=== PATIENT | female | born 1955 | race Hispanic/Latino ===

== ENCOUNTER 2018-08-31 21:44 | Emergency (ER) | payer BC ==
[2018-08-31 22:41] LABS: Absolute Lymphocytes (CBC) 2.6 K/uL (0.7-4.9); Basophils % 0.8 % (0-1.3); Eosinophils % 2.8 % (0-4.4); Hematocrit 37.6 % (36.0-45.0); Lymphocytes % 35.3 % (15.3-44.8); MPV 8.3 fL (7.6-11.3); Monocytes % 8.6 % (3.3-12.3); RBC Red Blood Cell Count 4.03 M/uL (3.86-4.86)
[2018-08-31] MEDS ORDERED: NA CHLORIDE 0.9% 1,000 ML ONE (22:42)
[2018-08-31] MEDS ORDERED: NA CHLORIDE 0.9% 500 ML ONE (22:42)
[2018-08-31 22:44] LABS: Protime INR 1.02
--- NOTE | 2018-08-31 23:06 | RAD REPORT ---
EXAM DESCRIPTION: US - CP - 08/31/2018 10:57 pm CLINICAL HISTORY: DIZZINESS Headache, drowsiness COMPARISON: Head C Spine Mpr Wo Con dated 01/23/2017 TECHNIQUE: Real-time sonographic evaluation of both carotid systems was performed. Doppler interroga tion was performed with waveform tracing bilaterally. FINDINGS: Normal high resistance waveforms are noted in both external carotid arteries. The common c arotid arteries and internal carotid arteries show normal low resistance waveforms. No significant plaque formation is seen. Peak systolic and end diastolic velocity values and the ICA/ CCA ratios are in the non-hemodynamically significant range. Antegrade flow seen in both vertebral arteries. IMPRESSION: No significant atherosclerotic changes noted. No evidence of a hemodynamically significant stenosis.
--- NOTE | 2018-08-31 23:07 | RAD REPORT ---
EXAM DESCRIPTION: RAD - Chest Single View - 08/31/2018 10:38 pm CLINICAL HISTORY: COUGH Chest pain. COMPARISON: CHEST SINGLE VIEW dated 03/24/2010; CHEST PA AND LAT 2 VIEW dated 06/01/2005 FINDINGS: Portable technique limits examination quality. The lungs are mildly fibrotic but grossly clear. The heart is normal in size. No displaced fractures. IMPRESSION: No acute intrathoracic process suspected.
[2018-08-31 23:10] LABS: ALT/SGPT 17 U/L (12-78); AST/SGOT 15 U/L (15-37); Albumin 3.5 g/dL (3.4-5.0); Alkaline Phosphatase 57 U/L (45-117); BUN Blood Urea Nitrogen 14 mg/dL (7-18); Bicarbonate 26 mmol/L (21-32); Bilirubin Direct < 0.1 mg/dL (0-0.2); Bilirubin Total 0.3 mg/dL (0.2-1.0); Glucose Level 105 mg/dL (74-106); Magnesium 2.1 mg/dL (1.8-2.4); NT PRO-BNP 29 pg/mL (<125); Potassium 3.6 mmol/L (3.5-5.1); Protein, Total 7.1 g/dL (6.4-8.2); Sodium Level 147 mmol/L (136-145); Troponin (Emerg Dept Use Only) < 0.02 ng/mL (0.0-0.045)
--- NOTE | 2018-08-31 23:17 | ER ---
Nurse's Notes [facility] Name: Sowmya Butterfield Age: 63 yrs Sex: Female : 1955 Arrival Date: 08/31/2018 Time: 21:48 Bed 6 Private MD: Diagnosis: [place] of blind spot area, bilateral Presentation: 08/31 21:57 Presenting complaint: Patient states: About an hour and half ago I started seeing spots ed1 and I have a bad headache. Transition of care: patient was not received from another setting of care. Onset of symptoms was August 31, 2018 at 20:30. Risk Assessment: Do you want to hurt yourself or someone else? Patient reports no desire to harm self or others. Initial Sepsis Screen: Does the patient meet any 2 criteria? No. Patient's initial sepsis screen is negative. Does the patient have a suspected source of infection? No. Patient's initial sepsis screen is negative. Care prior to arrival: None. 21:57 Method Of Arrival: Ambulatory ed1 21:57 Acuity: ORTIZ 3 ed1 Triage Assessment: 21:59 General: Appears uncomfortable, Behavior is calm, cooperative. Pain: Complains of pain ed1 in forehead Pain currently is 6 out of 10 on a pain scale. Neuro: Level of Consciousness is awake, alert, obeys commands, Oriented to person, place, time, situation, Shuttle Van Driver are equal bilaterally Moves all extremities. Full function Gait is steady, Speech is normal, Facial symmetry appears normal, Pupils are PERRLA, Intact Reports headache in entire frontal area. 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 - Social history:: Smoking status: Patient/guardian denies using tobacco. - Ebola Screening: : Patient negative for fever greater than or equal to 101.5 degrees Fahrenheit, and additional compatible Ebola Virus Disease symptoms Patient denies exposure to infectious person Patient denies travel to an Ebola-affected area in the 21 days before illness onset No symptoms or risks identified at this time. - Family history:: not pertinent. Screenin:14 Abuse screen: Denies threats or abuse. Nutritional screening: No deficits noted. jd3 Tuberculosis screening: No symptoms or risk factors identified. Fall Risk Ambulatory Aid- None/Bed Rest/Nurse Assist (0 pts). Gait- Normal/Bed Rest/Wheelchair (0 pts) Mental Status- Oriented to own ability (0 pts). Total Mann Fall Scale indicates No Risk (0-24 pts). Assessment: 22:11 General: Appears in no apparent distress. uncomfortable, Behavior is calm, cooperative, jd3 appropriate for age, anxious. Pain: Complains of pain in forehead Quality of pain is described as aching, pressure. Neuro: Level of Consciousness is awake, alert, obeys commands, Oriented to person, place, time, situation, Moves all extremities. Full function Gait is steady, Speech is normal, Facial symmetry appears normal, Pupils are PERRLA, Reports seeing spots of light. Denies weakness blurred vision dizziness, numbness diplopia. Cardiovascular: Denies chest pain, Capillary refill < 3 seconds Patient's skin is warm and dry. Respiratory: Airway is patent Respiratory effort is even, unlabored, Respiratory pattern is regular, symmetrical, Denies shortness of breath. GI: Abdomen is round non-distended, Patient currently denies constipation, diarrhea, nausea, vomiting. : No signs and/or symptoms were reported regarding the genitourinary system. EENT: Sclera/Cornea are clear in right eye and left eye. Derm: Skin is intact, Skin is dry, Skin is normal, Skin temperature is warm. Musculoskeletal: Circulation, motion, and sensation intact. Range of motion: intact in all extremities. 23:28 Reassessment: Patient appears in no apparent distress at this time. No changes from jd3 previously documented assessment. Patient and/or family updated on plan of care and expected duration. Pain level reassessed. Patient is alert, oriented x 3, equal unlabored respirations, skin warm/dry/pink. 23:45 Reassessment: Patient appears in no apparent distress at this time. Patient and/or jd3 family updated on plan of care and expected duration. Pain level reassessed. Patient is alert, oriented x 3, equal unlabored respirations, skin warm/dry/pink. reported understanding of discharge instructions. Vital Signs: 21:59 BP 150 / 79; Pulse 81; Resp 16; Temp 97.5(TE); Pulse Ox 97% on R/A; Weight 77.11 kg ed1 (R); Height 4 ft. 11 in. (149.86 cm) (R); Pain 6/10; 23:05 BP 113 / 73; Pulse 78; Resp 19 S; Pulse Ox 95% on R/A; jd3 23:26 BP 128 / 73 Supine; Pulse 83; jd3 23:27 BP 123 / 71 Sitting; Pulse 85; jd3 23:28 BP 136 / 75 Standing; Pulse 86; Resp 18 S; Pulse Ox 100% on R/A; jd3 21:59 Body Mass Index 34.34 (77.11 kg, 149.86 cm) ed1 ED Course: 21:48 Patient arrived in ED. ag3 21:58 Triage completed. ed1 21:59 Arm band placed on. ed1 22:03 Sidney Schwartz MD is Attending Physician. jannie 22:11 Milton Flores RN is Primary Nurse. jd3 22:15 Patient has correct armband on for positive identification. Placed in gown. Bed in low jd3 position. Call light in reach. Side rails up X 1. Adult w/ patient. 22:22 Inserted saline lock: 20 gauge in left antecubital area, using aseptic technique. Blood jd3 collected. 22:34 XRAY Chest (1 view) In Process Unspecified. EDMS 22:34 CT Head Brain wo Cont In Process Unspecified. EDMS 22:51 US Carotid Artery Bilateral In Process Unspecified. EDMS 23:14 Gianni Walton MD is Referral Physician. jannie 23:44 No provider procedures requiring assistance completed. IV discontinued, intact, jd3 bleeding controlled, No redness/swelling at site. Pressure dressing applied. Administered Medications: 22:56 Drug: NS 0.9% 500 ml Route: IV; Rate: bolus; Site: left antecubital; jd3 23:28 Follow up: Response: No adverse reaction; IV Status: Completed infusion; IV Intake: jd3 500ml 22:56 Drug: NS 0.9% 1000 ml Route: IV; Rate: 125 ml/hr; Site: left antecubital; jd3 23:44 Follow up: Response: No adverse reaction; IV Status: Order to discontinue infusion jd3 23:32 Drug: Aspirin 81 mg Route: PO; jd3 23:44 Follow up: Response: Medication administered at discharge. jd3 Intake: 23:28 IV: 500ml; Total: 500ml. jd3 Outcome: 23:14 Discharge ordered by MD. valderrama 23:45 Discharged to home ambulatory, with family. jd3 23:45 Condition: stable 23:45 Discharge instructions given to patient, family, Instructed on discharge instructions, follow up and referral plans. Demonstrated understanding of instructions, follow-up care. 23:46 Patient left the ED. jd3 Signatures: Dispatcher [employer] EDMS Sidney Schwartz MD MD cha Riggs, Erika, RN RN ed1 Milton Flores RN RN Greta Lopes3
--- NOTE | 2018-08-31 23:17 | EDPHYS ---
Physician Documentation [facility] Name: Sowmya Butterfield Age: 63 yrs Sex: Female : 1955 Arrival Date: 08/31/2018 Time: 21:48 Bed 6 Private MD: ED Physician Sidney Schwartz HPI: 08/31 22:17 This 63 yrs old Female presents to ER via Ambulatory with complaints of Vision jannie Problem. 22:17 The patient is experiencing floaters. Onset: The symptoms/episode began/occurred just jannie prior to arrival. Duration: the symptoms are continuous, are intermittent. Aggravated by nothing. Alleviated by nothing. Associated signs and symptoms: Pertinent negatives: None. 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 - Social history:: Smoking status: Patient/guardian denies using tobacco. - Ebola Screening: : Patient negative for fever greater than or equal to 101.5 degrees Fahrenheit, and additional compatible Ebola Virus Disease symptoms Patient denies exposure to infectious person Patient denies travel to an Ebola-affected area in the 21 days before illness onset No symptoms or risks identified at this time. - Family history:: not pertinent. ROS: 22:17 Constitutional: Negative for fever, chills, and weight loss, Eyes: Negative for injury, jannie pain, redness, and discharge, ENT: Negative for injury, pain, and discharge, Neck: Negative for injury, pain, and swelling, Cardiovascular: Negative for chest pain, palpitations, and edema, Respiratory: Negative for shortness of breath, cough, wheezing, and pleuritic chest pain, Abdomen/GI: Negative for abdominal pain, nausea, vomiting, diarrhea, and constipation, Back: Negative for injury and pain, : Negative for injury, bleeding, discharge, and swelling, MS/Extremity: Negative for injury and deformity, Skin: Negative for injury, rash, and discoloration, Psych: Negative for depression, anxiety, suicide ideation, homicidal ideation, and hallucinations, Allergy/Immunology: Negative for hives, rash, and allergies, Endocrine: Negative for neck swelling, polydipsia, polyuria, polyphagia, and marked weight changes, Hematologic/Lymphatic: Negative for swollen nodes, abnormal bleeding, and unusual bruising. 22:17 Neuro: Positive for visual changes. Exam: 22:17 Visual Acuity: I have reviewed the nursing documentation. [facility] 22:17 Constitutional: This is a well developed, well nourished patient who is awake, alert, and in no acute distress. Head/Face: Normocephalic, atraumatic. Eyes: Pupils equal round and reactive to light, extra-ocular motions intact. Lids and lashes normal. Conjunctiva and sclera are non-icteric and not injected. Cornea within normal limits. Periorbital areas with no swelling, redness, or edema. ENT: Nares patent. No nasal discharge, no septal abnormalities noted. Tympanic membranes are normal and external auditory canals are clear. Oropharynx with no redness, swelling, or masses, exudates, or evidence of obstruction, uvula midline. Mucous membranes moist. Neck: Trachea midline, no thyromegaly or masses palpated, and no cervical lymphadenopathy. Supple, full range of motion without nuchal rigidity, or vertebral point tenderness. No Meningismus. Chest/axilla: Normal chest wall appearance and motion. Nontender with no deformity. No lesions are appreciated. Cardiovascular: Regular rate and rhythm with a normal S1 and S2. No gallops, murmurs, or rubs. Normal PMI, no JVD. No pulse deficits. Respiratory: Lungs have equal breath sounds bilaterally, clear to auscultation and percussion. No rales, rhonchi or wheezes noted. No increased work of breathing, no retractions or nasal flaring. Abdomen/GI: Soft, non-tender, with normal bowel sounds. No distension or tympany. No guarding or rebound. No evidence of tenderness throughout. Back: No spinal tenderness. No costovertebral tenderness. Full range of motion. Skin: Warm, dry with normal turgor. Normal color with no rashes, no lesions, and no evidence of cellulitis. MS/ Extremity: Pulses equal, no cyanosis. Neurovascular intact. Full, normal range of motion. Neuro: Awake and alert, GCS 15, oriented to person, place, time, and situation. Cranial nerves II-XII grossly intact. Motor strength 5/5 in all extremities. Sensory grossly intact. Cerebellar exam normal. Normal gait. Psych: Awake, alert, with orientation to person, place and time. Behavior, mood, and affect are within normal limits. Vital Signs: 21:59 BP 150 / 79; Pulse 81; Resp 16; Temp 97.5(TE); Pulse Ox 97% on R/A; Weight 77.11 kg ed1 (R); Height 4 ft. 11 in. (149.86 cm) (R); Pain 6/10; 23:05 BP 113 / 73; Pulse 78; Resp 19 S; Pulse Ox 95% on R/A; jd3 23:26 BP 128 / 73 Supine; Pulse 83; jd3 23:27 BP 123 / 71 Sitting; Pulse 85; jd3 23:28 BP 136 / 75 Standing; Pulse 86; Resp 18 S; Pulse Ox 100% on R/A; jd3 21:59 Body Mass Index 34.34 (77.11 kg, 149.86 cm) ed1 MDM: 22:03 [facility] medically screened. [facility] 22:20 Data reviewed: vital signs, nurses notes, lab test result(s), EKG, radiologic studies, [facility] CT scan, doppler, plain films. 08/31 22:13 Order name: Basic Metabolic Panel; Complete Time: 23:14 [facility] 08/31 22:13 Order name: CBC with Diff; Complete Time: 23:14 [facility] 08/31 22:13 Order name: LFT's; Complete Time: 23:14 [facility] 08/31 22:13 Order name: Magnesium; Complete Time: 23:14 [facility] 08/31 22:13 Order name: NT PRO-BNP; Complete Time: 23:14 [facility] 08/31 22:13 Order name: PT-INR; Complete Time: 23:14 [facility] 08/31 22:13 Order name: Troponin (emerg Dept Use Only); Complete Time: 23:14 [facility] 08/31 22:13 Order name: XRAY Chest (1 view); Complete Time: 23:14 [facility] 08/31 22:13 Order name: CT Head Brain wo Cont [facility] 08/31 22:13 Order name: US Carotid Artery Bilateral; Complete Time: 23:14 [facility] 08/31 22:40 Order name: Urine Culture [facility] 08/31 23:36 Order name: Urine Dipstick--Ancillary (enter results) [facility] 08/31 22:13 Order name: EKG; Complete Time: 22:15 [facility] 08/31 22:13 Order name: Cardiac monitoring; Complete Time: 23:04 [facility] 08/31 22:13 Order name: EKG - Nurse/Tech; Complete Time: 23:04 [facility] 08/31 22:13 Order name: IV Saline Lock; Complete Time: 22:26 [facility] 08/31 22:13 Order name: Labs collected and sent; Complete Time: : [facility] 08/31 22:13 Order name: O2 Per Protocol; Complete Time: : [facility] 08/31 22:13 Order name: O2 Sat Monitoring; Complete Time: 22: [facility] 08/31 22:13 Order name: Urine Dipstick-Ancillary (obtain specimen); Complete Time: 23:33 [facility] 08/31 23:15 Order name: Orthostatics; Complete Time: 23:27 [facility] Administered Medications: 22:56 Drug: NS 0.9% 500 ml Route: IV; Rate: bolus; Site: left antecubital; jd3 23:28 Follow up: Response: No adverse reaction; IV Status: Completed infusion; IV Intake: jd3 500ml 22:56 Drug: NS 0.9% 1000 ml Route: IV; Rate: 125 ml/hr; Site: left antecubital; jd3 23:44 Follow up: Response: No adverse reaction; IV Status: Order to discontinue infusion jd3 23:32 Drug: Aspirin 81 mg Route: PO; jd3 23:44 Follow up: Response: Medication administered at discharge. jd3 Disposition: 08/31/18 23:14 Discharged to Home. Impression: Scotoma of blind spot area, bilateral. - Condition is Stable. - Discharge Instructions: Aspirin and Your Heart, Scotoma, [id number], Scotoma. - Medication Reconciliation Form, Thank You Letter, Antibiotic Education, Prescription Opioid Use form. - Follow up: Private Physician; When: 2 - 3 days; Reason: Recheck today's complaints, Continuance of care, Re-evaluation by your physician. Follow up: Gianni Walton; When: 2 - 3 days; Reason: Recheck today's complaints, Re-evaluation by your physician. - Problem is new. - Symptoms have improved. Signatures: Dispatcher [employer] EDMS Sidney Schwartz MD MD cha Riggs, Erika, RN RN ed1 Milton Flores, RN RN jd3 Corrections: (The following items were deleted from the chart) 23:46 23:14 08/31/2018 23:14 Discharged to Home. Impression: Scotoma of blind spot area, jd3 bilateral. Condition is Stable. Discharge Instructions: Scotoma, [id number], [place], Aspirin and Your Heart. Forms are Medication Reconciliation Form, Thank You Letter, Antibiotic Education, Prescription Opioid Use. Follow up: Private Physician; When: 2 - 3 days; Reason: Recheck today's complaints, Continuance of care, Re-evaluation by your physician. Follow up: Gianni Walton; When: 2 - 3 days; Reason: Recheck today's complaints, Re-evaluation by your physician. Problem is new. Symptoms have improved. jannie
[2018-08-31] MEDS ORDERED: ASPIRIN 81 MG CHEWABLE TABLET ONE (23:41)
[2018-08-31 23:42] LABS: Urine Blood TRACE (NEG); Urine Glucose NEGATIVE (NEG); Urine Protein NEGATIVE (NEG); Urine Specific Gravity 1.025 (1.005-1.030)
--- NOTE | 2018-09-01 07:54 | EKG ---
Test Date: 2018-08-31 Test Time: 22:59:26 Outer Diameter Technician: MARLYN MEASUREMENT RESULTS: Intervals: Rate: 78 NH: 136 QRSD: 80 QT: 392 QTc: 446 [place]: P: 54 NH: 136 QRS: 81 T: 74 INTERPRETIVE STATEMENTS: Normal sinus rhythm Normal ECG Compared to ECG 03/24/2010 16:18:02 Sinus tachycardia no longer present ST (T wave) deviation no longer present Electronically Signed On 09-01-18 07:53:43 CDT by Rayo Ramsey
--- NOTE | 2018-09-01 11:20 | RAD REPORT ---
EXAM DESCRIPTION: Head Brain Wo Cont CLINICAL HISTORY: DIZZINESS COMPARISON: None Available TECHNIQUE: Contiguous axial CT images of the head were obtained. Coronal and sagittal reconstructions were created from the axial data. This exam was performed according to our departmental dose-optimization program, which includes autom ated exposure control, adjustment of the mA and/or kV according to patient size and/or use of iterati ve reconstruction technique. FINDINGS: There is no evidence of acute mass, mass effect, midline shift or hemorrhage. The ventricl es and extra-axial CSF spaces are unremarkable. The brain parenchyma appears normal for the patient's age. No acute abnormalities of the bones is seen. IMPRESSION: No acute intracranial abnormality. Electronically signed by: Jose Garcias 08/31/2018 10:49 PM CDT Due to temporary technical issues with the PACS/Fluency reporting system, reports are being signed by the in house radiologist as a courtesy to ensure prompt reporting. The interpreting radiologist is f ully responsible for the content of the report.
== END 2018-08-31 23:46 | disposition home or self-care (01) ==
LOC: ER 21:44
DX: H53.42 Scotoma of blind spot area (principal)
CPT/HCPCS: 36415; 70450; 71045; 80048; 80076; 81003; 83735; 83880; 84484; 85025; 85610; 87086; 87088; 93005; 93880; 96360; 99284; J7030

== ENCOUNTER 2018-12-20 12:43 | Emergency (ER) | payer BC ==
[2018-12-20] MEDS ORDERED: HYDROCODONE/APAP 10/325 TAB ONE (13:36)
[2018-12-20 13:49] LABS: Absolute Lymphocytes (CBC) 2.6 K/uL (0.7-4.9); Basophils % 0.6 % (0-1.3); Hematocrit 37.2 % (36.0-45.0); Lymphocytes % 29.5 % (15.3-44.8); MPV 8.4 fL (7.6-11.3); RBC Red Blood Cell Count 4.19 M/uL (3.86-4.86)
[2018-12-20 13:50] LABS: Protime INR 1.11
[2018-12-20 14:07] LABS: ALT/SGPT 15 U/L (12-78); AST/SGOT 11 U/L (15-37); Albumin 3.5 g/dL (3.4-5.0); Alkaline Phosphatase 61 U/L (45-117); BUN Blood Urea Nitrogen 17 mg/dL (7-18); Bicarbonate 27 mmol/L (21-32); Bilirubin Direct < 0.1 mg/dL (0-0.2); Bilirubin Total 0.2 mg/dL (0.2-1.0); Glucose Level 100 mg/dL (74-106); Magnesium 2.2 mg/dL (1.8-2.4); NT PRO-BNP 62 pg/mL (<125); Potassium 3.7 mmol/L (3.5-5.1); Protein, Total 7.5 g/dL (6.4-8.2); Sodium Level 142 mmol/L (136-145); Troponin (Emerg Dept Use Only) < 0.02 ng/mL (0.0-0.045)
--- NOTE | 2018-12-20 14:52 | RAD REPORT ---
EXAM DESCRIPTION: RAD - Chest Single View - 12/20/2018 2:35 pm CLINICAL HISTORY: Chest pain, back pain COMPARISON: August 31 TECHNIQUE: AP portable chest image was obtained 1420 hours . FINDINGS: Lung volumes are low. Chronic interstitial pattern matches comparison. No peripheral mass, consolidation or failure finding. Heart and vasculature are normal. No measurable pleural effusion a nd no pneumothorax. No acute bony abnormality seen. No acute aortic findings suspected. IMPRESSION: No acute cardiopulmonary process. Chest findings similar to August 31.
--- NOTE | 2018-12-20 14:53 | RAD REPORT ---
EXAM DESCRIPTION: RAD - Lumbar Spine 3 Views - 12/20/2018 2:38 pm CLINICAL HISTORY: Low back pain COMPARISON: January 2017 FINDINGS: A three-view lumbar spine examination was performed. Lumbar bodies are normal in height an d alignment. No fracture or acute bony process seen. No disc space narrowing. Moderate facet joint de generative changes are present L3-S1. Pattern is similar to the comparison study. No pars defects [place] ntified. IMPRESSION: Lower lumbar facet degenerative change matching comparison. No acute findings seen.
--- NOTE | 2018-12-20 15:47 | ER ---
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 Pain worse with movement. Transition of care: patient was not received from another setting of care. Onset of symptoms was December 20, 2018. Risk Assessment: Do you want to hurt yourself or someone else? Patient reports no desire to harm self or others. Initial Sepsis Screen: Does the patient meet any 2 criteria? No. Patient's initial sepsis screen is negative. Does the patient have a suspected source of infection? No. Patient's initial sepsis screen is negative. Care prior to arrival: Medication(s) given: Tylenol, taken \T\ 1000. 12:43 Method Of Arrival: EMS: [facility] 12:43 Acuity: ORTIZ 4 sv Triage Assessment: 12:46 General: Appears in no apparent distress. uncomfortable, well groomed, well developed, sv Behavior is calm, cooperative, appropriate for age. Pain: Complains of pain in low back area Pain currently is 3 out of 10 on a pain scale. Neuro: Level of Consciousness is awake, alert, obeys commands, Oriented to person, place, time, situation, Gait is steady. Respiratory: Airway is patent Respiratory effort is even, unlabored, Respiratory pattern is regular, symmetrical. Derm: Skin is pink, warm \T\ dry. 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 - Social history:: Smoking status: Patient/guardian denies using tobacco, Patient/guardian denies using alcohol. - Ebola Screening: : No symptoms or risks identified at this time. Screenin:46 Abuse screen: Denies threats or abuse. Denies injuries from another. Nutritional sv screening: No deficits noted. Tuberculosis screening: No symptoms or risk factors identified. Fall Risk None identified. Assessment: 13:38 Reassessment: Patient appears in no apparent distress at this time. Patient and/or sv family updated on plan of care and expected duration. Pain level reassessed. Patient is alert, oriented x 3, equal unlabored respirations, skin warm/dry/pink. Cardiovascular: Chest pain is described as mild, Pain is 3 out of 10 on a pain scale. quality is sore episodes are intermittent. 14:40 Reassessment: Patient appears in no apparent distress at this time. Patient and/or sv family updated on plan of care and expected duration. Pain level reassessed. Patient is alert, oriented x 3, equal unlabored respirations, skin warm/dry/pink. Vital Signs: 12:45 BP 146 / 82; Pulse 80; Resp 16; Temp 98.7; Pulse Ox 95% ; Weight 74.39 kg; Height 4 ft. sv 11 in. (149.86 cm); Pain 3/10; 14:06 Pulse 75; Resp 16; Pulse Ox 96% ; sv 15:02 BP 110 / 79; Pulse 67; Resp 16; Pulse Ox 95% ; sv 12:45 Body Mass Index 33.12 (74.39 kg, 149.86 cm) sv ED Course: 12:43 Patient arrived in ED. sv 12:43 Alexandria Cross, RN is Primary Nurse. sv 12:44 Triage completed. sv 12:45 Arm band placed on. sv 12:46 Patient has correct armband on for positive identification. Bed in low position. Call sv light in reach. Door closed. Head of bed elevated. 12:47 Awaiting ED provider evaluation. sv 13:02 Surendra Messina PA is PHCP. [email or web address] 13:02 Sidney Schwartz MD is Attending Physician. jmm 13:25 Inserted saline lock: 20 gauge in right antecubital area, using aseptic technique. sv Blood collected. Flushed right antecubital with 5 ml normal saline. 13:50 EKG done, by inside technical sales representative. reviewed by Surendra HAYS. at1 14:07 Awaiting for x-ray. sv 14:10 Patient moved to radiology via wheelchair. sv 14:36 XRAY Chest (1 view) In Process Unspecified. EDMS 14:36 Lumbar Spine (3 Views) XRAY In Process Unspecified. EDMS 14:40 Patient moved back from radiology. sv 16:16 No provider procedures requiring assistance completed. IV discontinued, intact, ss bleeding controlled, No redness/swelling at site. Pressure dressing applied. Administered Medications: 13:55 Drug: [place] 10 mg-325 mg 1 tabs Route: PO; sv 16:16 Follow up: Response: No adverse reaction; Pain is decreased; Pain is decreased, 0 ss Outcome: 15:45 Discharge ordered by MD. luis 16:16 Discharged to home ambulatory. ss 16:16 Condition: good 16:16 Discharge instructions given to patient, family, Instructed on discharge instructions, follow up and referral plans. medication usage, Demonstrated understanding of instructions, follow-up care, medications, Prescriptions given X 1. 16:16 Patient left the ED. Signatures: Dispatcher [employer] Alexandria Zuñiga, RN RN Surendra Messina PA PA jmm Smirch, Shelby, RN RN Nahed Haider, procurement representative EKG Tat1
--- NOTE | 2018-12-20 15:47 | EDPHYS ---
Physician Documentation [facility] Name: Sowmya Butterfield Age: 63 yrs Sex: Female : 1955 Arrival Date: 12/20/2018 Time: 12:43 Bed 15 Private MD: ED Physician Sidney Schwartz HPI: 12/20 13:03 This 63 yrs old Female presents to ER via EMS with complaints of Low Back Pain.jmm 13:03 The patient presents with pain that is acute. Onset: The symptoms/episode jmm began/occurred acutely. Modifying factors: The patient symptoms are alleviated by nothing, the patient symptoms are aggravated by any movement. Associated signs and symptoms: Pertinent positives: abdominal pain, Pertinent negatives: fever, vomiting. This is a 63 year old female with no chronic medical conditions that presents to the ED with complaints of low back pain beginning after picking up an item off the ground. Patient states soon after developing back pain, the patient then developed a transient episode of chest pain which has since resolved. Patient states the back pain radiates to her abdomen. . 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 - Social history:: Smoking status: Patient/guardian denies using tobacco, Patient/guardian denies using alcohol. - Ebola Screening: : No symptoms or risks identified at this time. ROS: 13:03 Constitutional: Negative for fever, chills, and weight loss, Respiratory: Negative for jmm shortness of breath, cough, wheezing, and pleuritic chest pain. 13:03 Cardiovascular: Positive for chest pain. 13:03 Abdomen/GI: Positive for abdominal pain. 13:03 All other systems are negative. Exam: 13:03 Head/Face: atraumatic. Eyes: EOMI, no conjunctival erythema appreciated ENT: Moist jmm Mucus Membranes Neck: Trachea midline, Supple Chest/axilla: Normal chest wall appearance and motion. Cardiovascular: Regular rate and rhythm. No edema appreciated 13:03 Constitutional: The patient appears in no acute distress, alert, awake. 13:03 Cardiovascular: Rate: normal, Rhythm: regular, Pulses: no pulse deficits are appreciated. 13:03 Respiratory: the patient does not display signs of respiratory distress, Respirations: normal, Breath sounds: are clear throughout. 13:03 Abdomen/GI: Inspection: abdomen appears normal, Bowel sounds: normal, Palpation: abdomen is soft and non-tender, in all quadrants. 13:03 Back: vertebral tenderness, is appreciated at T12, L1 and L2. 13:03 Musculoskeletal/extremity: ROM: intact in all extremities. 13:03 Skin: Appearance: Color: normal in color, pink. 13:03 Neuro: Orientation: is normal, Mentation: is normal, Memory: is normal. 13:03 Psych: Behavior/mood is pleasant, cooperative. Vital Signs: 12:45 BP 146 / 82; Pulse 80; Resp 16; Temp 98.7; Pulse Ox 95% ; Weight 74.39 kg; Height 4 ft. sv 11 in. (149.86 cm); Pain 3/10; 14:06 Pulse 75; Resp 16; Pulse Ox 96% ; sv 15:02 BP 110 / 79; Pulse 67; Resp 16; Pulse Ox 95% ; sv 12:45 Body Mass Index 33.12 (74.39 kg, 149.86 cm) sv MDM: 13:03 Patient medically screened. jannie 15:44 Data reviewed: vital signs, nurses notes. Counseling: I had a detailed discussion with luis the patient and/or guardian regarding: the historical points, exam findings, and any diagnostic results supporting the discharge/admit diagnosis, lab results, radiology results, the need for outpatient follow up, to return to the emergency department if symptoms worsen or persist or if there are any questions or concerns that arise at home. ED course: Patient is alert and non toxic in appearance in the ED. Pain is relieved Patient is given strict return precautions. Patient understood and agrees with the plan of care. . 12/20 13:24 Order name: Basic Metabolic Panel; Complete Time: 14:22 [facility] 12/20 13:24 Order name: CBC with Diff; Complete Time: 14:22 [facility] 12/20 13:24 Order name: LFT's; Complete Time: 14:22 [facility] 12/20 13:24 Order name: Magnesium; Complete Time: 14:22 [facility] 12/20 13:24 Order name: NT PRO-BNP; Complete Time: 14:22 [facility] 12/20 13:24 Order name: PT-INR; Complete Time: 14:22 [facility] 12/20 13:24 Order name: Troponin (emerg Dept Use Only); Complete Time: 14:22 [facility] 12/20 13:24 Order name: XRAY Chest (1 view); Complete Time: 15:01 [facility] 12/20 13:24 Order name: EKG; Complete Time: 13:30 [facility] 12/20 13:24 Order name: Cardiac monitoring; Complete Time: 16:16 [facility] 12/20 13:24 Order name: EKG - Nurse/Tech; Complete Time: 13:38 [facility] 12/20 13:24 Order name: IV Saline Lock; Complete Time: 13:38 [facility] 12/20 13:24 Order name: Lumbar Spine (3 Views) XRAY; Complete Time: 15:01 [facility] 12/20 13:24 Order name: Labs collected and sent; Complete Time: 13:38 [facility] 12/20 13:24 Order name: O2 Per Protocol; Complete Time: 13:38 [facility] 12/20 13:24 Order name: O2 Sat Monitoring; Complete Time: 13:38 jm Administered Medications: 13:55 Drug: [place] 10 mg-325 mg 1 tabs Route: PO; sv 16:16 Follow up: Response: No adverse reaction; Pain is decreased; Pain is decreased, 0 ss Disposition: 12/21 06:25 Co-signature as Attending Physician, Sidney Schwartz MD I agree with the assessment and jannie plan of care. Disposition: 12/20/18 15:45 Discharged to Home. Impression: Strain of muscle, fascia and tendon of lower back, Chest pain, unspecified. - Condition is Stable. - Discharge Instructions: Back Pain, Adult, Nonspecific Chest Pain. - Prescriptions for orphenadrine citrate 100 mg Oral Tablet Sustained Release - take 1 tablet by ORAL route 2 times per day As needed; 20 tablet. - Medication Reconciliation Form, Thank You Letter, Antibiotic Education, Prescription Opioid Use form. - Work release form (12/21/18 08:52). bd - Follow up: Private Physician; When: 2 - 3 days; Reason: Recheck today's complaints, Continuance of care, Re-evaluation by your physician. Signatures: Dispatcher [employer] Alexandria Zuñiga RN RN sv Anderson, Corey, MD MD cha Mickail, Joel PA PA jmm Smirch, Vanessa, RN RN ss Danelle Johnson Corrections: (The following items were deleted from the chart) 12/20 16:16 15:45 12/20/2018 15:45 Discharged to Home. Impression: Strain of muscle, fascia and ss tendon of lower back; Chest pain, unspecified. Condition is Stable. Forms are Medication Reconciliation Form, Thank You Letter, Antibiotic Education, Prescription Opioid Use. Follow up: Private Physician; When: 2 - 3 days; Reason: Recheck today's complaints, Continuance of care, Re-evaluation by your physician. luis
--- NOTE | 2018-12-20 15:50 | EKG ---
Test Date: 2018-12-20 Test Time: 13:35:26 [employer] Licensee: LALI MEASUREMENT RESULTS: Intervals: Rate: 65 MI: 146 QRSD: 80 QT: 390 QTc: 405 [place]: P: -16 MI: 146 QRS: 74 T: 72 INTERPRETIVE STATEMENTS: Normal sinus rhythm Normal ECG Compared to ECG 08/31/2018 22:59:26 No significant changes Electronically Signed On 12-20-18 15:49:49 CDT by Rayo Ramsey
[2018-12-20 16:32] VITALS: TEMP 98.7
[2018-12-20 16:35] VITALS: BP 110/79; O2SAT 95
== END 2018-12-20 16:16 | disposition home or self-care (01) ==
LOC: ER 12:43
DX: S39.012A Strain of muscle, fascia and tendon of lower back, initial encounter (principal); R07.9 Chest pain, unspecified
CPT/HCPCS: 36415; 71045; 72100; 80048; 80076; 83735; 83880; 84484; 85025; 85610; 93005; 99284

== ENCOUNTER 2019-12-01 17:07 | Emergency (ER) | payer BC ==
--- NOTE | 2019-12-01 18:32 | RAD REPORT ---
EXAM DESCRIPTION: RAD - Knee Right 3 View - 12/01/2019 6:16 pm CLINICAL HISTORY: Right knee pain FINDINGS: No fracture or dislocation is seen. Vague 22 millimeter lucency within the proximal tibia may represent a focal area of osteoporosis. A l esion is another consideration. It is recommended that the patient have a followup right knee x-ray i n 2 months for re-evaluation
[2019-12-01] MEDS ORDERED: HYDROCODONE/APAP 7.5/325 MG TAB ONE (18:35)
--- NOTE | 2019-12-01 18:44 | EDPHYS ---
Physician Documentation [facility] Name: Sowmya Butterfield Age: 64 yrs Sex: Female : 1955 Arrival Date: 12/01/2019 Time: 17:07 Bed 18 Private MD: Elvis Chamorro E ED Physician Jimmie Olson HPI: 11/30 18:52 This 64 yrs old Female presents to ER via Ambulatory with complaints of Knee kb Pain. 18:52 The patient presents with pain. The complaints affect the right knee. Context: The kb problem was sustained at home, resulted from an unknown cause, the patient can fully bear weight, the patient is able to ambulate. Onset: The symptoms/episode began/occurred last night. Modifying factors: The symptoms are alleviated by nothing. the symptoms are aggravated by weight bearing. Associated signs and symptoms: The patient has no apparent associated signs or symptoms. Treatment prior to arrival includes: no previous treatment. Severity of symptoms: At their worst the symptoms were mild, in the emergency department the symptoms are unchanged. The patient has not experienced similar symptoms in the past. The patient has not recently seen a physician. Pt reports she started having right knee pain last night and it has gotten worse since onset. Ambulates with steady gait. . 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 - Social history:: Smoking status: Patient denies any tobacco usage or history of. ROS: 18:51 Constitutional: Negative for fever, chills, and weight loss, Cardiovascular: Negative kb for chest pain, palpitations, and edema, Respiratory: Negative for shortness of breath, cough, wheezing, and pleuritic chest pain, Abdomen/GI: Negative for abdominal pain, nausea, vomiting, diarrhea, and constipation, Back: Negative for injury and pain, Skin: Negative for injury, rash, and discoloration, Neuro: Negative for headache, weakness, numbness, tingling, and seizure. 18:51 MS/extremity: Positive for pain, of the right knee. Exam: 18:51 Constitutional: This is a well developed, well nourished patient who is awake, alert, kb and in no acute distress. Head/Face: Normocephalic, atraumatic. Chest/axilla: Normal chest wall appearance and motion. Nontender with no deformity. No lesions are appreciated. Cardiovascular: Regular rate and rhythm with a normal S1 and S2. No gallops, murmurs, or rubs. Normal PMI, no JVD. No pulse deficits. Respiratory: Lungs have equal breath sounds bilaterally, clear to auscultation and percussion. No rales, rhonchi or wheezes noted. No increased work of breathing, no retractions or nasal flaring. Abdomen/GI: Soft, non-tender, with normal bowel sounds. No distension or tympany. No guarding or rebound. No evidence of tenderness throughout. Skin: Warm, dry with normal turgor. Normal color with no rashes, no lesions, and no evidence of cellulitis. MS/ Extremity: Pulses equal, no cyanosis. Neurovascular intact. Full, normal range of motion. Neuro: Awake and alert, GCS 15, oriented to person, place, time, and situation. Cranial nerves II-XII grossly intact. Motor strength 5/5 in all extremities. Sensory grossly intact. Cerebellar exam normal. Normal gait. Vital Signs: 17:32 BP 137 / 78; Pulse 80; Resp 15; Temp 98.1(TE); Pulse Ox 99% on R/A; Weight 72.57 kg; ss Height 4 ft. 11 in. (149.86 cm); Pain 6/10; 18:54 BP 136 / 80; Pulse 81; Resp 16 S; Pulse Ox 99% on R/A; jd3 17:32 Body Mass Index 32.32 (72.57 kg, 149.86 cm) ss MDM: 17:58 Patient medically screened. kb 18:52 Data reviewed: vital signs, nurses notes. Data interpreted: Pulse oximetry: on room air kb is 99 %. Interpretation: normal. Counseling: I had a detailed discussion with the patient and/or guardian regarding: the historical points, exam findings, and any diagnostic results supporting the discharge/admit diagnosis, radiology results, the need for outpatient follow up, a orthopedic surgeon, to return to the emergency department if symptoms worsen or persist or if there are any questions or concerns that arise at home. 11/30 17:35 Order name: XRAY Knee RIGHT 3 view; Complete Time: 18:38 ss 11/30 18:42 Order name: Kelby Wrap; Complete Time: 18:43 kb Administered Medications: 18:24 Drug: [place] (7.5 mg-325 mg) 1 tabs Route: PO; jd3 18:55 Follow up: Response: No adverse reaction; RASS: Alert and Calm (0) jd3 Disposition: 18:56 Co-signature as Attending Physician, Jimmie Olson MD. rn Disposition: 12/01/19 18:44 Discharged to Home. Impression: Pain in right knee. - Condition is Stable. - Discharge Instructions: Musculoskeletal Pain, Knee Pain, [id number]. - Prescriptions for Diclofenac Sodium 75 mg Oral Tablet, Delayed Release (E.C.) - take 1 tablet by ORAL route 2 times per day As needed; 30 tablet. - Medication Reconciliation Form, Thank You Letter, Antibiotic Education, Prescription Opioid Use form. - Follow up: Emergency Department; When: As needed; Reason: Worsening of condition. Follow up: Private Physician; When: 2 - 3 days; Reason: Recheck today's complaints, Continuance of care, Re-evaluation by your physician. Signatures: Dispatcher [employer] EDMS Joselin Whitlock, AIR ROUTE TRAFFIC CONTROLLER-C AIR ROUTE TRAFFIC CONTROLLER-Ckb Jimmie Olson MD MD rn Smirch, Shelby, RN RN ss Davies, Jonathon, RN RN jd3 Corrections: (The following items were deleted from the chart) 18:55 18:44 12/01/2019 18:44 Discharged to Home. Impression: Pain in right knee. Condition is jd3 Stable. Forms are Medication Reconciliation Form, Thank You Letter, Antibiotic Education, Prescription Opioid Use. Follow up: Emergency Department; When: As needed; Reason: Worsening of condition. Follow up: Private Physician; When: 2 - 3 days; Reason: Recheck today's complaints, Continuance of care, Re-evaluation by your physician. kb
--- NOTE | 2019-12-01 18:44 | ER ---
Nurse's Notes [facility] Name: Sowmya Butterfield Age: 64 yrs Sex: Female : 1955 Arrival Date: 12/01/2019 Time: 17:07 Bed 18 Private MD: Elvis Chamorro E Diagnosis: Pain in right knee Presentation: 11/30 17:32 Chief complaint: Patient states: R knee pain that began last night. Denies injury. ss Coronavirus screen: Client denies travel out of the [place] in the last 14 days. Ebola Screen: Patient denies exposure to infectious person. Patient denies travel to an Ebola-affected area in the 21 days before illness onset. Initial Sepsis Screen: Does the patient meet any 2 criteria? No. Patient's initial sepsis screen is negative. Does the patient have a suspected source of infection? No. Patient's initial sepsis screen is negative. Risk Assessment: Do you want to hurt yourself or someone else? Patient reports no desire to harm self or others. Onset of symptoms was November 30, 2019. 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 - Social history:: Smoking status: Patient denies any tobacco usage or history of. Screenin:30 Abuse screen: Denies threats or abuse. Nutritional screening: No deficits noted. jd3 Tuberculosis screening: No symptoms or risk factors identified. Fall Risk Ambulatory Aid- None/Bed Rest/Nurse Assist (0 pts). Gait- Normal/Bed Rest/Wheelchair (0 pts) Mental Status- Oriented to own ability (0 pts). Total Mann Fall Scale indicates No Risk (0-24 pts). Assessment: 18:29 General: Appears in no apparent distress. uncomfortable, Behavior is calm, cooperative, jd3 appropriate for age. Pain: Complains of pain in right knee Quality of pain is described as sharp, tender, Aggravated by increased activity, weight bearing. Neuro: Level of Consciousness is awake, alert, obeys commands, Oriented to person, place, time, situation. Cardiovascular: Denies chest pain, Capillary refill < 3 seconds Patient's skin is warm and dry. Respiratory: Airway is patent Respiratory effort is even, unlabored, Respiratory pattern is regular, symmetrical, Denies cough, shortness of breath. GI: No signs and/or symptoms were reported involving the gastrointestinal system. : No signs and/or symptoms were reported regarding the genitourinary system. EENT: No signs and/or symptoms were reported regarding the EENT system. Derm: Skin is intact, Skin is dry, Skin is normal, Skin temperature is warm. Musculoskeletal: Circulation, motion, and sensation intact. Range of motion: intact in all extremities. 18:53 Reassessment: Patient appears in no apparent distress at this time. Patient and/or jd3 family updated on plan of care and expected duration. Pain level reassessed. Patient is alert, oriented x 3, equal unlabored respirations, skin warm/dry/pink. pt reported understanding of discharge instructions, even and steady gait upon discharge Patient states feeling better. Vital Signs: 17:32 BP 137 / 78; Pulse 80; Resp 15; Temp 98.1(TE); Pulse Ox 99% on R/A; Weight 72.57 kg; ss Height 4 ft. 11 in. (149.86 cm); Pain 6/10; 18:54 BP 136 / 80; Pulse 81; Resp 16 S; Pulse Ox 99% on R/A; jd3 17:32 Body Mass Index 32.32 (72.57 kg, 149.86 cm) ED Course: 17:07 Patient arrived in ED. ag5 17:07 Elvis Chamorro MD is Private Physician. ag5 17:33 Triage completed. ss 17:34 Arm band placed on left wrist. ss 17:57 Joselin Whitlock FNP-C is PHCP. kb 17:58 Jimmie Olson MD is Attending Physician. kb 18:16 XRAY Knee RIGHT 3 view In Process Unspecified. EDMS 18:23 Milton Flores, MARIAN is Primary Nurse. jd3 18:30 Patient has correct armband on for positive identification. Bed in low position. Call jd3 light in reach. Side rails up X 1. Pulse ox on. NIBP on. 18:52 No provider procedures requiring assistance completed. Patient did not have IV access jd3 during this emergency room visit. 18:53 Kelby wrap to right knee. jd3 Administered Medications: 18:24 Drug: [place] (7.5 mg-325 mg) 1 tabs Route: PO; jd3 18:55 Follow up: Response: No adverse reaction; RASS: Alert and Calm (0) jd3 Outcome: 18:44 Discharge ordered by MD. echevarria 18:53 Discharged to home ambulatory, with family. jd3 18:53 Condition: stable 18:53 Discharge instructions given to patient, Instructed on discharge instructions, follow up and referral plans. medication usage, Demonstrated understanding of instructions, follow-up care, medications, Prescriptions given X 1. 18:55 Patient left the ED. jd3 Signatures: Dispatcher [employer] EDMS Joselin Whitlock, JOSE-C JOSE-Vanessa Castro RN RN Milton Roman RN RN Nathan Clark ag5 Corrections: (The following items were deleted from the chart) 18:54 18:53 Reassessment: Patient appears in no apparent distress at this time. Patient jd3 and/or family updated on plan of care and expected duration. Pain level reassessed. Patient is alert, oriented x 3, equal unlabored respirations, skin warm/dry/pink. Patient states feeling better. jd3
[2019-12-01 19:09] VITALS: TEMP 98.1; O2SAT 99
[2019-12-01 19:10] VITALS: BP 136/80
== END 2019-12-01 18:55 | disposition home or self-care (01) ==
LOC: ER 17:07
DX: M25.561 Pain in right knee (principal); R73.03 Prediabetes; Z98.84 Bariatric surgery status
CPT/HCPCS: 99284